=== PATIENT | male | born 1985 | race Caucasian/White ===

== ENCOUNTER 2016-12-29 00:28 | Emergency (ER) | payer MEDICAID, OTHER ==
[2016-12-29] MEDS ORDERED: PREDNISONE 20 MG TABLET ONE (04:27)
== END 2016-12-29 04:39 | disposition home or self-care (01) ==
LOC: ED 00:28
DX: L27.1 Localized skin eruption due to drugs and medicaments taken internally (principal); T36.0X5A Adverse effect of penicillins, initial encounter; Y92.9 Unspecified place or not applicable
CPT/HCPCS: 99282; 99283; J7512